=== PATIENT | male | born 1985 | race African-American/Black ===

== ENCOUNTER 2019-09-16 22:45 | Emergency (ER) | payer OTHER ==
[~2019-09-16] VITALS: Ht 188 cm; Wt 111.1 kg
[2019-09-17] MEDS ORDERED: HYDROcodone/Acetamin 5/325 tab ORAL ONE (01:45)
--- NOTE | 2019-09-17 02:07 | Emergency Room Report ---
History of Present Illness General Chief Complaint: Lower Extremity Injury Source: Patient Present Illness [facility] This is a 34-year-old male with no past medical history. He presents with complaint of toe pain. He stubbed his toe while he was playing with his kids the other day. He said he was corrected to the right side. This occurred 2 days ago. Since the swelling went down it is more. There is some swelling. Pain with walking. No fever chills but no nausea no vomiting. Denies any other complaint. Is 8 out of 10. Allergies: Coded Allergies: No Known Allergies (Unverified , 09/16/19) Patient History Past Medical History: see triage record, old chart reviewed Past Surgical History: none Pertinent Family History: none Social History: Denies: smoking Immunizations: other Reviewed Nursing Documentation: PMH: Agreed; PSxH: Agreed Nursing Documentation-PMH Past Medical History: No Stated History Review of Systems Eye: Denies: eye pain, blurred vision ENT: Denies: ear pain, nose congestion, throat swelling Respiratory: Denies: cough, shortness of breath Cardiovascular: Denies: chest pain, palpitations Gastrointestinal: Denies: abdominal pain, diarrhea, nausea, vomiting Musculoskeletal: Reports: joint pain; Denies: back pain Skin: Denies: rash Neurological: Denies: headache, numbness Endocrine: Denies: increased thirst, increased urine Hematologic/Lymphatic: Denies: easy bruising All Other Systems: negative except mentioned in HPI Physical Exam Vital Signs Date Time Temp Pulse Resp B/P (MAP) Pulse Ox O2 Delivery O2 Flow Rate FiO2 09/16/19 23:21 97.9 64 14 139/90 (106) 96 Room Air Vitals normal Sp02 EP Interpretation: reviewed, normal General Appearance: well appearing, no apparent distress, alert Head: normocephalic, atraumatic Eyes: bilateral eye PERRL, bilateral eye EOMI ENT: hearing grossly normal, normal pharynx Neck: full range of motion, supple, no meningismus Respiratory: chest non-tender, lungs clear, normal breath sounds Cardiovascular #1: regular rate, rhythm, no murmur Gastrointestinal: normal bowel sounds, non tender, no mass, no organomegaly, no bruit, non-distended Musculoskeletal: back normal, normal range of motion, gait/station normal, other - Right fifth toe: There is some swelling and tenderness. No obvious deformity. Psychiatric: mood/affect normal Procedures Splinting Splinting : Consent: Verbal Location: Toes Pre-Made Type: Jose Alejandro taping Pre-Proc Neuro Vasc Exam: normal Post-Proc Neuro Vasc Exam: normal Patient Tolerated: Well Complications: None Medical Decision Making Diagnostic Impression: Primary Impression: Injury of toe on right foot Qualified Codes: S99.921A - Unspecified injury of right foot, initial encounter ER Course Patient presents with toe injury. No obvious fracture. He may have had a dislocation. Will jose alejandro tape and sent home. Other X-Ray Diagnostic Results Other X-Ray Diagnostic Results : X-Ray ordered: X-rays foot right # of Views/Limited Vs Complete: 3 View Indication: Pain EP Interpretation: Yes Interpretation: no dislocation, no soft tissue swelling, no fractures Impression: No acute disease Electronically Signed by: Wesley Jiménez mD Last Vital Signs Date Time Temp Pulse Resp B/P (MAP) Pulse Ox O2 Delivery O2 Flow Rate FiO2 09/16/19 23:21 97.9 64 14 139/90 (106) 96 Room Air Status: improved Disposition: HOME, SELF-CARE Condition: Stable Scripts Hydrocodone Bit/Acetaminophen 5-325* (NORCO 5-325*) 1 Each Tablet 1 TAB ORAL Q6H PRN for For Pain, #10 TAB 0 Refills Prov: Wesley Jiménez MD 09/17/19 Ibuprofen* (MOTRIN*) 600 Mg Tablet 600 MG ORAL THREE TIMES A DAY, #30 TAB 0 Refills Prov: Wesley Jiménez MD 09/17/19 Referrals: NON PHYSICIAN (PCP) Additional Instructions: Ice pack to your foot. Ice pack to area. Follow-up with your doctor in 7 days. Return if symptoms worsen. Wesley Jiménez MD Sep 17, 2019 02:07
[2019-09-17] MEDS ORDERED: NORCO 5-325 TA1 EACH ORAL (02:09)
[2019-09-17] MEDS ORDERED: IBUPROFEN600 MG ORAL (02:09)
[2019-09-17 02:10] VITALS: BP 139/90
--- NOTE | 2019-09-17 12:14 | Diagnostic Imaging Report ---
Indication: Pain in right fourth and fifth toe Technique: 3 views right foot Comparison: none Findings: No acute fractures. No dislocations. The joint spaces are preserved. There is mild metatarsus adductus Impression: No acute process
== END 2019-09-17 02:13 | disposition home or self-care (01) ==
LOC: EMR 09-17 01:37
DX: S99.921A Unspecified injury of right foot, initial encounter (principal); W22.8XXA Striking against or struck by other objects, initial encounter; Y92.9 Unspecified place or not applicable
CPT/HCPCS: 73660; Z7502; 99283